=== PATIENT | female | born 1955 | race Caucasian/White ===

== ENCOUNTER 2021-01-25 07:45 | Inpatient (IN) | payer OTHER, MEDICAID ==
[~2021-01-25] VITALS: Ht 157.5 cm; Wt 106.4 kg
[2021-01-25 09:08] LABS: Hemoglobin 12.6 g/dL (12.2-16.2)
[2021-01-25 09:09] LABS: Mean Corpuscular Hemoglobin 31.9 pg (28.0-32.0); Red Blood Cells 3.94 10^6/uL (4.0-5.20); Red Cell Distribution Width 13.4 % (11.8-14.3)
[2021-01-25 09:15] LABS: White Blood Cell 1.6 10^3/uL (4.4-10.8)
[2021-01-25 09:16] LABS: Basophils % (manual) 0 (0.0-2.0); Blast Cells 0; Eosinophils % (manual) 0 (0-7); Metamyelocytes % 0; Myelocytes % 0; Promyelocytes % 0; Reactive Lymphocytes 0
[2021-01-25 09:23] LABS: Albumin 2.8 g/dL (3.4-5.0); Calcium 8.9 mg/dL (8.5-10.1); Magnesium 2.1 mg/dL (1.6-2.6); Potassium 3.2 mmol/L (3.5-5.1)
[2021-01-25 09:40] LABS: BUN/Creatinine Ratio 12.4; Bilirubin, Total 0.6 mg/dL (0.2-1.0); Total Protein 6.6 g/dL (6.4-8.2)
[2021-01-25 10:07] LABS: Band Neutrophils % (manual) 9; Lymphocytes % (manual) 26 (10.0-50.0); Monocytes % (manual) 4 (0-12)
[2021-01-25] MEDS ORDERED: DexAMETHasone SOD PHOS 10MG/1ML VIAL INJ IV ONE (10:15)
[2021-01-25] MEDS ORDERED: cefTRIAXone 1GM/50ML D5W 50 ML IV ONE (10:15)
[2021-01-25] MEDS ORDERED: AZITHROMYCIN 500MG/ 250ML 250 ML IV ONE (10:15)
[2021-01-25 12:38] LABS: Urine Bacteria NONE SEEN /hpf (None Seen); Urine Blood 1+ /uL (Negative); Urine WBC 6 /hpf (0 - 5)
[2021-01-25] MEDS ORDERED: NITROGLYCERIN 0.4 MG SL TAB SL PRN (18:00)
[2021-01-25] MEDS ORDERED: MORPHINE SULFATE INJECTION 2 MG/ML SYRG IV PRN ×2 (18:00→18:15)
[2021-01-25] MEDS ORDERED: REMDESIVIR PER PHARMACY 0 ML IV SCH (18:00)
[2021-01-25] MEDS ORDERED: ACETAMINOPHEN 500 MG TAB PO PRN (18:00)
[2021-01-25] MEDS ORDERED: DEXTROSE (50%) 50ML SYRG IV PRN (18:00)
[2021-01-25] MEDS ORDERED: SOD CHL 0.9%/ KCL 40MEQ 1,000 ML IV ONE (18:00)
[2021-01-25] MEDS ORDERED: hydrALAZINE HCL 20 MG/ML VL IV PRN (18:15)
[2021-01-25] MEDS ORDERED: DOCUSATE CALCIUM 240 MG CAP PO PRN (18:15)
[2021-01-25] MEDS ORDERED: ONDANSETRON HCL 4 MG/2 ML VIAL IV PRN (18:15)
[2021-01-25] MEDS: BUDESONIDE (INHALATION) 180 MCG IH IN SCH (19:03)
[2021-01-25] MEDS: ALBUTEROL SULF HFA 90MCG INH 200DOSE IN PRN (19:55)
[2021-01-25] MEDS ORDERED: REMDESIVIR 200 MG in NS 210ml LOADING DOSE ADULT IV ONE (20:00)
[2021-01-25] MEDS: ACCU-CHEK COMFORT CURVE STRIP VI SCH ×2 (20:12→23:32)
[2021-01-25] MEDS: InsuLIN REG 1unit/0.01ml Soln (100units/ml) SC SCH ×2 (20:16→23:46)
[2021-01-25 21:00] VITALS: BP 146/67
[2021-01-25 22:00] VITALS: BP 146/67
[2021-01-25] MEDS: ENOXAPARIN SOD 40 MG/0.4 ML SYRINGE SC SCH (22:22)
[2021-01-25] MEDS: INSULIN LANTUS (GLARGINE) 1 /0.01ml (100units/ml) SC SCH (22:24)
[2021-01-26] VITALS (7 sets, daily range): BP systolic 102–159; BP diastolic 57–69
[2021-01-26] MEDS ORDERED: METF-370 PO (02:40)
[2021-01-26] MEDS ORDERED: GLIP-110 PO (02:40)
[2021-01-26] MEDS: ACCU-CHEK COMFORT CURVE STRIP VI SCH ×5 (03:42→20:35)
[2021-01-26] MEDS: InsuLIN REG 1unit/0.01ml Soln (100units/ml) SC SCH ×5 (03:44→20:40)
[2021-01-26 06:08] LABS: Hematocrit 36.3 % (36.0-46.0); Hemoglobin 12.5 g/dL (12.2-16.2); Mean Corpuscular Hemoglobin 32.3 pg (28.0-32.0); Mean Corpuscular Hgb Conc. 34.5 g/dL (32.0-36.0); Mean Corpuscular Volume 93.6 fL (80.0-100.0); Red Blood Cells 3.87 10^6/uL (4.0-5.20); Red Cell Distribution Width 13.7 % (11.8-14.3)
[2021-01-26 06:29] LABS: Potassium 3.6 mmol/L (3.5-5.1)
[2021-01-26 06:40] LABS: Albumin 2.6 g/dL (3.4-5.0); BUN/Creatinine Ratio 17.1; Bilirubin, Total 0.4 mg/dL (0.2-1.0); Calcium 8.6 mg/dL (8.5-10.1)
[2021-01-26] MEDS: BUDESONIDE (INHALATION) 180 MCG IH IN SCH ×2 (06:47→22:00)
[2021-01-26] MEDS: ALBUTEROL SULF HFA 90MCG INH 200DOSE IN PRN ×2 (06:47→23:22)
[2021-01-26 06:48] LABS: White Blood Cell 1.8 10^3/uL (4.4-10.8)
[2021-01-26 06:49] LABS: Basophils % (manual) 0 (0.0-2.0); Blast Cells 0; Eosinophils % (manual) 0 (0-7); Metamyelocytes % 0; Myelocytes % 0; Promyelocytes % 0; Reactive Lymphocytes 0
[2021-01-26] MEDS: cefTRIAXone 1GM/50ML D5W 50 ML IV SCH (09:43)
[2021-01-26] MEDS: DexAMETHasone SOD PHOS 10MG/1ML VIAL INJ IV SCH (09:45)
[2021-01-26] MEDS: PANTOPRAZOLE 40 MG TAB PO SCH (09:46)
[2021-01-26] MEDS: ASCORBIC ACID 1,000 MG TAB PO SCH (09:46)
[2021-01-26] MEDS: ZINC SULFATE 220mg CAP or TAB PO SCH (09:46)
[2021-01-26] MEDS: CHOLECALCIFEROL (VITD3) 2,000 UNIT CAP/TAB PO SCH (09:47)
[2021-01-26] MEDS: ENOXAPARIN SOD 40 MG/0.4 ML SYRINGE SC SCH ×2 (09:49→22:01)
[2021-01-26 11:26] LABS: Band Neutrophils % (manual) 3; Lymphocytes % (manual) 18 (10.0-50.0); Monocytes % (manual) 16 (0-12)
[2021-01-26] MEDS: AZITHROMYCIN 500MG/ 250ML 250 ML IV SCH (11:30)
[2021-01-26] MEDS: REMDESIVIR 100mg 100 MG in SODIUM CHL 0.9% 230 ML IV SCH (15:00)
[2021-01-26] MEDS: INSULIN LANTUS (GLARGINE) 1 /0.01ml (100units/ml) SC SCH (22:02)
[2021-01-27] MEDS: InsuLIN REG 1unit/0.01ml Soln (100units/ml) SC SCH ×6 (00:02→20:00)
[2021-01-27] MEDS: ACCU-CHEK COMFORT CURVE STRIP VI SCH ×6 (04:15→20:00)
[2021-01-27 05:00] VITALS: BP 129/94
[2021-01-27] MEDS: ALBUTEROL SULF HFA 90MCG INH 200DOSE IN PRN ×2 (06:06→21:27)
[2021-01-27] MEDS: BUDESONIDE (INHALATION) 180 MCG IH IN SCH ×2 (06:06→21:23)
[2021-01-27 09:00] VITALS: BP 149/63
[2021-01-27] MEDS: DexAMETHasone SOD PHOS 10MG/1ML VIAL INJ IV SCH (09:50)
[2021-01-27] MEDS: cefTRIAXone 1GM/50ML D5W 50 ML IV SCH (09:50)
[2021-01-27] MEDS: PANTOPRAZOLE 40 MG TAB PO SCH (09:51)
[2021-01-27] MEDS: ZINC SULFATE 220mg CAP or TAB PO SCH (09:51)
[2021-01-27] MEDS: ASCORBIC ACID 1,000 MG TAB PO SCH (09:51)
[2021-01-27] MEDS: ENOXAPARIN SOD 40 MG/0.4 ML SYRINGE SC SCH ×2 (09:52→21:46)
[2021-01-27] MEDS: CHOLECALCIFEROL (VITD3) 2,000 UNIT CAP/TAB PO SCH (09:52)
[2021-01-27] MEDS ORDERED: glipiZIDE 5 MG TAB PO SCH (10:00)
[2021-01-27] MEDS ORDERED: glipiZIDE 5 MG TAB PO ONE (11:30)
[2021-01-27] MEDS: AZITHROMYCIN 500MG/ 250ML 250 ML IV SCH (12:01)
[2021-01-27 12:13] LABS: Basophils # (auto) 0 10 ^3/uL (0-0.2); Basophils % (auto) 0.3 % (0.0-2.0); Eosinophils # (auto) 0 10 ^3/uL (0-0.8); Eosinophils % (auto) 0.1 % (0.0-7.0); Hematocrit 37.1 % (36.0-46.0); Hemoglobin 12.5 g/dL (12.2-16.2); Lymphocytes # (auto) 0.3 10 ^3/uL (0.4-5.4); Lymphocytes % (auto) 6.7 % (10.0-50.0); Mean Corpuscular Hemoglobin 32.4 pg (28.0-32.0); Mean Corpuscular Hgb Conc. 33.8 g/dL (32.0-36.0); Mean Corpuscular Volume 95.8 fL (80.0-100.0); Monocytes # (auto) 0.4 10 ^3/uL (0-1.3); Monocytes % (auto) 10.2 % (0.0-12.0); Neutrophils # (auto) 3.4 10 ^3/uL (1.6-8.6); Neutrophils % (auto) 82.7 % (37.0-80.0); Nucleated Red Blood Cells % 0.1 %; Red Blood Cells 3.87 10^6/uL (4.0-5.20); Red Cell Distribution Width 13.8 % (11.8-14.3); White Blood Cell 4.1 10^3/uL (4.4-10.8)
[2021-01-27 13:00] VITALS: BP_SYST 114; BP_SYST 149; BP_DIAS 63; BP_DIAS 71
[2021-01-27] MEDS: REMDESIVIR 100mg 100 MG in SODIUM CHL 0.9% 230 ML IV SCH (15:55)
[2021-01-27 17:00] VITALS: BP 133/62
[2021-01-27] MEDS: INSULIN LANTUS (GLARGINE) 1 /0.01ml (100units/ml) SC SCH (21:43)
[2021-01-27 22:35] VITALS: BP 148/69
[2021-01-28] MEDS: ACCU-CHEK COMFORT CURVE STRIP VI SCH ×6 (00:09→20:20)
[2021-01-28] MEDS: InsuLIN REG 1unit/0.01ml Soln (100units/ml) SC SCH ×6 (00:09→20:19)
[2021-01-28 05:14] VITALS: BP 152/70
[2021-01-28 05:53] LABS: Basophils # (auto) 0 10 ^3/uL (0-0.2); Basophils % (auto) 0.2 % (0.0-2.0); Eosinophils # (auto) 0 10 ^3/uL (0-0.8); Hematocrit 40.3 % (36.0-46.0); Hemoglobin 13.6 g/dL (12.2-16.2); Lymphocytes # (auto) 0.4 10 ^3/uL (0.4-5.4); Lymphocytes % (auto) 9.5 % (10.0-50.0); Mean Corpuscular Hemoglobin 32.1 pg (28.0-32.0); Mean Corpuscular Hgb Conc. 33.8 g/dL (32.0-36.0); Monocytes # (auto) 0.4 10 ^3/uL (0-1.3); Monocytes % (auto) 10.8 % (0.0-12.0); Neutrophils # (auto) 3.1 10 ^3/uL (1.6-8.6); Neutrophils % (auto) 79.5 % (37.0-80.0); Nucleated Red Blood Cells % 0.1 %; Red Blood Cells 4.24 10^6/uL (4.0-5.20); Red Cell Distribution Width 13.9 % (11.8-14.3); White Blood Cell 3.9 10^3/uL (4.4-10.8)
[2021-01-28 06:05] LABS: Potassium 3.7 mmol/L (3.5-5.1)
[2021-01-28] MEDS: glipiZIDE 5 MG TAB PO SCH (06:31)
[2021-01-28 06:37] LABS: Albumin 2.6 g/dL (3.4-5.0); BUN/Creatinine Ratio 26.7; Bilirubin, Total 0.5 mg/dL (0.2-1.0); Calcium 9.5 mg/dL (8.5-10.1); Magnesium 2.7 mg/dL (1.6-2.6); Total Protein 6.1 g/dL (6.4-8.2)
[2021-01-28] MEDS: ALBUTEROL SULF HFA 90MCG INH 200DOSE IN PRN ×2 (07:13→21:29)
[2021-01-28] MEDS: BUDESONIDE (INHALATION) 180 MCG IH IN SCH ×2 (07:13→21:28)
[2021-01-28] MEDS: cefTRIAXone 1GM/50ML D5W 50 ML IV SCH (08:41)
[2021-01-28] MEDS: DexAMETHasone SOD PHOS 10MG/1ML VIAL INJ IV SCH (08:41)
[2021-01-28] MEDS: PANTOPRAZOLE 40 MG TAB PO SCH (08:42)
[2021-01-28] MEDS: AZITHROMYCIN 500MG/ 250ML 250 ML IV SCH (08:42)
[2021-01-28] MEDS: ZINC SULFATE 220mg CAP or TAB PO SCH (08:42)
[2021-01-28] MEDS: ASCORBIC ACID 1,000 MG TAB PO SCH (08:42)
[2021-01-28] MEDS: CHOLECALCIFEROL (VITD3) 2,000 UNIT CAP/TAB PO SCH (08:42)
[2021-01-28] MEDS: ENOXAPARIN SOD 40 MG/0.4 ML SYRINGE SC SCH ×2 (08:43→22:26)
[2021-01-28 08:46] VITALS: BP 147/75
[2021-01-28 13:00] VITALS: BP 147/76
[2021-01-28] MEDS: REMDESIVIR 100mg 100 MG in SODIUM CHL 0.9% 230 ML IV SCH (15:10)
[2021-01-28 17:00] VITALS: BP 137/72
[2021-01-28] MEDS: INSULIN LANTUS (GLARGINE) 1 /0.01ml (100units/ml) SC SCH (22:27)
[2021-01-28 22:31] VITALS: BP 141/64
[2021-01-29] MEDS: ACCU-CHEK COMFORT CURVE STRIP VI SCH ×6 (04:00→20:38)
[2021-01-29] MEDS: InsuLIN REG 1unit/0.01ml Soln (100units/ml) SC SCH ×6 (04:31→20:44)
[2021-01-29 05:07] VITALS: BP 165/85
[2021-01-29 06:03] LABS: Potassium 3.5 mmol/L (3.5-5.1)
[2021-01-29 06:08] LABS: Albumin 2.3 g/dL (3.4-5.0); BUN/Creatinine Ratio 27.4; Bilirubin, Total 0.6 mg/dL (0.2-1.0); Calcium 9.2 mg/dL (8.5-10.1); Total Protein 5.5 g/dL (6.4-8.2)
[2021-01-29] MEDS: glipiZIDE 5 MG TAB PO SCH (06:17)
[2021-01-29] MEDS: BUDESONIDE (INHALATION) 180 MCG IH IN SCH ×2 (07:23→23:08)
[2021-01-29] MEDS: ALBUTEROL SULF HFA 90MCG INH 200DOSE IN PRN ×2 (07:23→23:08)
[2021-01-29] MEDS: cefTRIAXone 1GM/50ML D5W 50 ML IV SCH (08:20)
[2021-01-29] MEDS: AZITHROMYCIN 500MG/ 250ML 250 ML IV SCH (08:21)
[2021-01-29] MEDS: DexAMETHasone SOD PHOS 10MG/1ML VIAL INJ IV SCH (08:21)
[2021-01-29] MEDS: PANTOPRAZOLE 40 MG TAB PO SCH (08:22)
[2021-01-29] MEDS: ZINC SULFATE 220mg CAP or TAB PO SCH (08:22)
[2021-01-29] MEDS: ASCORBIC ACID 1,000 MG TAB PO SCH (08:23)
[2021-01-29] MEDS: CHOLECALCIFEROL (VITD3) 2,000 UNIT CAP/TAB PO SCH (08:23)
[2021-01-29] MEDS: ENOXAPARIN SOD 40 MG/0.4 ML SYRINGE SC SCH ×2 (08:24→22:10)
[2021-01-29 09:00] VITALS: BP 123/63
[2021-01-29 13:00] VITALS: BP 149/71
[2021-01-29] MEDS: REMDESIVIR 100mg 100 MG in SODIUM CHL 0.9% 230 ML IV SCH (14:59)
[2021-01-29 17:00] VITALS: BP 148/72
[2021-01-29 22:00] VITALS: BP 157/68
[2021-01-29] MEDS: INSULIN LANTUS (GLARGINE) 1 /0.01ml (100units/ml) SC SCH (22:06)
[2021-01-30] MEDS: ACCU-CHEK COMFORT CURVE STRIP VI SCH ×6 (00:28→20:05)
[2021-01-30] MEDS: InsuLIN REG 1unit/0.01ml Soln (100units/ml) SC SCH ×6 (00:30→20:10)
[2021-01-30 05:00] VITALS: BP 133/71
[2021-01-30 06:31] LABS: Albumin 2.3 g/dL (3.4-5.0); Calcium 9.3 mg/dL (8.5-10.1); Potassium 3.4 mmol/L (3.5-5.1)
[2021-01-30 06:36] LABS: BUN/Creatinine Ratio 28.4; Bilirubin, Total 0.6 mg/dL (0.2-1.0); Total Protein 5.6 g/dL (6.4-8.2)
[2021-01-30] MEDS: glipiZIDE 5 MG TAB PO SCH (06:40)
[2021-01-30] MEDS: cefTRIAXone 1GM/50ML D5W 50 ML IV SCH (07:55)
[2021-01-30] MEDS: AZITHROMYCIN 500MG/ 250ML 250 ML IV SCH (07:56)
[2021-01-30] MEDS: DexAMETHasone SOD PHOS 10MG/1ML VIAL INJ IV SCH (07:56)
[2021-01-30] MEDS: PANTOPRAZOLE 40 MG TAB PO SCH (07:57)
[2021-01-30] MEDS: ASCORBIC ACID 1,000 MG TAB PO SCH (07:57)
[2021-01-30] MEDS: CHOLECALCIFEROL (VITD3) 2,000 UNIT CAP/TAB PO SCH (07:57)
[2021-01-30] MEDS: ZINC SULFATE 220mg CAP or TAB PO SCH (07:57)
[2021-01-30] MEDS: ENOXAPARIN SOD 40 MG/0.4 ML SYRINGE SC SCH ×2 (07:58→21:38)
[2021-01-30] MEDS: ALBUTEROL SULF HFA 90MCG INH 200DOSE IN PRN ×2 (08:31→22:07)
[2021-01-30] MEDS: BUDESONIDE (INHALATION) 180 MCG IH IN SCH ×2 (08:31→22:06)
[2021-01-30 09:00] VITALS: BP 137/63
[2021-01-30 13:00] VITALS: BP 143/68
[2021-01-30 16:56] VITALS: BP 141/61
[2021-01-30 21:30] VITALS: BP 134/76
[2021-01-30] MEDS: INSULIN LANTUS (GLARGINE) 1 /0.01ml (100units/ml) SC SCH (21:44)
[2021-01-31] MEDS: ACCU-CHEK COMFORT CURVE STRIP VI SCH ×6 (00:20→22:18)
[2021-01-31] MEDS: InsuLIN REG 1unit/0.01ml Soln (100units/ml) SC SCH ×6 (00:21→22:24)
[2021-01-31 05:00] VITALS: BP 159/78
[2021-01-31] MEDS: BUDESONIDE (INHALATION) 180 MCG IH IN SCH ×2 (06:33→22:00)
[2021-01-31] MEDS: ALBUTEROL SULF HFA 90MCG INH 200DOSE IN PRN ×2 (06:33→23:36)
[2021-01-31] MEDS: glipiZIDE 5 MG TAB PO SCH (06:49)
[2021-01-31 09:00] VITALS: BP 156/65
[2021-01-31] MEDS: ZINC SULFATE 220mg CAP or TAB PO SCH (09:10)
[2021-01-31] MEDS: PANTOPRAZOLE 40 MG TAB PO SCH (09:10)
[2021-01-31] MEDS: ENOXAPARIN SOD 40 MG/0.4 ML SYRINGE SC SCH ×2 (09:10→22:25)
[2021-01-31] MEDS: ASCORBIC ACID 1,000 MG TAB PO SCH (09:10)
[2021-01-31] MEDS: DexAMETHasone SOD PHOS 10MG/1ML VIAL INJ IV SCH (09:10)
[2021-01-31] MEDS: CHOLECALCIFEROL (VITD3) 2,000 UNIT CAP/TAB PO SCH (09:11)
[2021-01-31 12:00] LABS: Basophils # (auto) 0 10 ^3/uL (0-0.2); Basophils % (auto) 0.1 % (0.0-2.0); Eosinophils # (auto) 0 10 ^3/uL (0-0.8); Hematocrit 40.7 % (36.0-46.0); Hemoglobin 14.4 g/dL (12.2-16.2); Lymphocytes # (auto) 0.7 10 ^3/uL (0.4-5.4); Lymphocytes % (auto) 8.3 % (10.0-50.0); Mean Corpuscular Hemoglobin 32.7 pg (28.0-32.0); Mean Corpuscular Hgb Conc. 35.3 g/dL (32.0-36.0); Mean Corpuscular Volume 92.6 fL (80.0-100.0); Monocytes # (auto) 0.6 10 ^3/uL (0-1.3); Monocytes % (auto) 6.4 % (0.0-12.0); Neutrophils # (auto) 7.7 10 ^3/uL (1.6-8.6); Neutrophils % (auto) 85.2 % (37.0-80.0); Nucleated Red Blood Cells % 0.1 %; Red Blood Cells 4.39 10^6/uL (4.0-5.20); Red Cell Distribution Width 13.3 % (11.8-14.3)
[2021-01-31 12:28] LABS: Potassium 3.6 mmol/L (3.5-5.1)
[2021-01-31 12:44] LABS: Albumin 2.3 g/dL (3.4-5.0); BUN/Creatinine Ratio 29.5; Bilirubin, Total 0.8 mg/dL (0.2-1.0); Calcium 9.3 mg/dL (8.5-10.1); Total Protein 5.7 g/dL (6.4-8.2)
[2021-01-31 13:00] VITALS: BP 113/62
[2021-01-31 17:00] VITALS: BP 102/64
[2021-01-31] MEDS ORDERED: LORazepam 2MG/ML-1ML VIAL IV ONE (18:30)
[2021-01-31 22:00] VITALS: BP 127/77
[2021-01-31] MEDS: INSULIN LANTUS (GLARGINE) 1 /0.01ml (100units/ml) SC SCH (22:24)
[2021-02-01] MEDS: ACCU-CHEK COMFORT CURVE STRIP VI SCH ×7 (02:31→23:49)
[2021-02-01] MEDS: InsuLIN REG 1unit/0.01ml Soln (100units/ml) SC SCH ×7 (02:45→23:49)
[2021-02-01 05:00] VITALS: BP_SYST 127; BP_SYST 145; BP_DIAS 77; BP_DIAS 78
[2021-02-01 06:49] LABS: Basophils # (auto) 0 10 ^3/uL (0-0.2); Basophils % (auto) 0.2 % (0.0-2.0); Eosinophils # (auto) 0 10 ^3/uL (0-0.8); Hematocrit 38.6 % (36.0-46.0); Hemoglobin 13.5 g/dL (12.2-16.2); Lymphocytes # (auto) 0.4 10 ^3/uL (0.4-5.4); Lymphocytes % (auto) 6.6 % (10.0-50.0); Mean Corpuscular Hemoglobin 32.6 pg (28.0-32.0); Mean Corpuscular Hgb Conc. 34.9 g/dL (32.0-36.0); Mean Corpuscular Volume 93.3 fL (80.0-100.0); Monocytes # (auto) 0.3 10 ^3/uL (0-1.3); Monocytes % (auto) 5.9 % (0.0-12.0); Neutrophils # (auto) 4.9 10 ^3/uL (1.6-8.6); Neutrophils % (auto) 87.3 % (37.0-80.0); Nucleated Red Blood Cells % 0.1 %; Red Blood Cells 4.14 10^6/uL (4.0-5.20); Red Cell Distribution Width 13.6 % (11.8-14.3); White Blood Cell 5.6 10^3/uL (4.4-10.8)
[2021-02-01] MEDS: glipiZIDE 5 MG TAB PO SCH (06:51)
[2021-02-01 07:02] LABS: BUN/Creatinine Ratio 37.7; CRP High Sensitivity 5.21 mg/dL (< 0.3); Magnesium 2.9 mg/dL (1.6-2.6)
[2021-02-01 09:00] VITALS: BP 150/76
[2021-02-01] MEDS: ASCORBIC ACID 1,000 MG TAB PO SCH (10:08)
[2021-02-01] MEDS: DexAMETHasone SOD PHOS 10MG/1ML VIAL INJ IV SCH (10:08)
[2021-02-01] MEDS: ZINC SULFATE 220mg CAP or TAB PO SCH (10:08)
[2021-02-01] MEDS: CHOLECALCIFEROL (VITD3) 2,000 UNIT CAP/TAB PO SCH (10:09)
[2021-02-01] MEDS: ENOXAPARIN SOD 40 MG/0.4 ML SYRINGE SC SCH ×2 (10:09→21:49)
[2021-02-01] MEDS: PANTOPRAZOLE 40 MG TAB PO SCH (10:09)
[2021-02-01 17:00] VITALS: BP 125/62
[2021-02-01 21:38] VITALS: BP_SYST 120; BP_SYST 150; BP_DIAS 66; BP_DIAS 70
[2021-02-01] MEDS: INSULIN LANTUS (GLARGINE) 1 /0.01ml (100units/ml) SC SCH (21:50)
[2021-02-01] MEDS: BUDESONIDE (INHALATION) 180 MCG IH IN SCH (22:00)
[2021-02-01] MEDS: ALBUTEROL SULF HFA 90MCG INH 200DOSE IN PRN (23:20)
[2021-02-02] MEDS: ACCU-CHEK COMFORT CURVE STRIP VI SCH ×6 (04:01→23:31)
[2021-02-02] MEDS: InsuLIN REG 1unit/0.01ml Soln (100units/ml) SC SCH ×6 (04:02→23:34)
[2021-02-02 05:00] VITALS: BP 147/52
[2021-02-02] MEDS: BUDESONIDE (INHALATION) 180 MCG IH IN SCH ×2 (06:34→22:00)
[2021-02-02] MEDS: ALBUTEROL SULF HFA 90MCG INH 200DOSE IN PRN (06:34)
[2021-02-02] MEDS: glipiZIDE 5 MG TAB PO SCH (06:57)
[2021-02-02] MEDS: DexAMETHasone SOD PHOS 10MG/1ML VIAL INJ IV SCH (08:56)
[2021-02-02] MEDS: ENOXAPARIN SOD 40 MG/0.4 ML SYRINGE SC SCH ×2 (08:56→20:42)
[2021-02-02] MEDS: CHOLECALCIFEROL (VITD3) 2,000 UNIT CAP/TAB PO SCH (08:57)
[2021-02-02] MEDS: ZINC SULFATE 220mg CAP or TAB PO SCH (08:57)
[2021-02-02] MEDS: ASCORBIC ACID 1,000 MG TAB PO SCH (08:57)
[2021-02-02] MEDS: PANTOPRAZOLE 40 MG TAB PO SCH (08:57)
[2021-02-02 09:00] VITALS: BP 139/50
[2021-02-02 12:49] VITALS: BP 152/67
[2021-02-02] MEDS: INSULIN LANTUS (GLARGINE) 1 /0.01ml (100units/ml) SC SCH (20:41)
[2021-02-02 22:00] VITALS: BP 138/65
[2021-02-03] MEDS: ACCU-CHEK COMFORT CURVE STRIP VI SCH ×6 (03:56→23:45)
[2021-02-03] MEDS: InsuLIN REG 1unit/0.01ml Soln (100units/ml) SC SCH ×6 (03:57→23:46)
[2021-02-03 05:00] VITALS: BP 130/61
[2021-02-03] MEDS: BUDESONIDE (INHALATION) 180 MCG IH IN SCH ×2 (05:54→18:48)
[2021-02-03] MEDS: ALBUTEROL SULF HFA 90MCG INH 200DOSE IN PRN ×2 (05:54→18:48)
[2021-02-03] MEDS: glipiZIDE 5 MG TAB PO SCH (06:08)
[2021-02-03 08:00] VITALS: BP 136/87
[2021-02-03 09:00] VITALS: BP 116/62
[2021-02-03] MEDS: CHOLECALCIFEROL (VITD3) 2,000 UNIT CAP/TAB PO SCH (10:20)
[2021-02-03] MEDS: ENOXAPARIN SOD 40 MG/0.4 ML SYRINGE SC SCH ×2 (10:21→20:32)
[2021-02-03] MEDS: ZINC SULFATE 220mg CAP or TAB PO SCH (10:28)
[2021-02-03] MEDS: ASCORBIC ACID 1,000 MG TAB PO SCH (10:28)
[2021-02-03] MEDS: PANTOPRAZOLE 40 MG TAB PO SCH (10:28)
[2021-02-03] MEDS: DexAMETHasone SOD PHOS 10MG/1ML VIAL INJ IV SCH (10:29)
[2021-02-03 13:00] VITALS: BP 137/69
[2021-02-03 17:00] VITALS: BP 148/74
[2021-02-03] MEDS: INSULIN LANTUS (GLARGINE) 1 /0.01ml (100units/ml) SC SCH (20:33)
[2021-02-03 21:46] VITALS: BP 141/64
[2021-02-04] VITALS (7 sets, daily range): BP systolic 121–146; BP diastolic 43–71
[2021-02-04] MEDS: ACCU-CHEK COMFORT CURVE STRIP VI SCH ×6 (03:10→23:39)
[2021-02-04] MEDS: InsuLIN REG 1unit/0.01ml Soln (100units/ml) SC SCH ×6 (03:13→23:41)
[2021-02-04] MEDS: glipiZIDE 5 MG TAB PO SCH (05:39)
[2021-02-04] MEDS: ALBUTEROL SULF HFA 90MCG INH 200DOSE IN PRN (06:09)
[2021-02-04] MEDS: BUDESONIDE (INHALATION) 180 MCG IH IN SCH ×2 (06:09→22:00)
[2021-02-04] MEDS: DexAMETHasone SOD PHOS 10MG/1ML VIAL INJ IV SCH (09:30)
[2021-02-04] MEDS: ZINC SULFATE 220mg CAP or TAB PO SCH (09:31)
[2021-02-04] MEDS: PANTOPRAZOLE 40 MG TAB PO SCH (09:31)
[2021-02-04] MEDS: CHOLECALCIFEROL (VITD3) 2,000 UNIT CAP/TAB PO SCH (09:32)
[2021-02-04] MEDS: ENOXAPARIN SOD 40 MG/0.4 ML SYRINGE SC SCH ×2 (09:32→20:27)
[2021-02-04] MEDS: ASCORBIC ACID 1,000 MG TAB PO SCH (09:32)
[2021-02-04] MEDS: INSULIN LANTUS (GLARGINE) 1 /0.01ml (100units/ml) SC SCH (20:27)
[2021-02-05] VITALS (10 sets, daily range): BP systolic 102–134; BP diastolic 41–74
[2021-02-05] MEDS: ACCU-CHEK COMFORT CURVE STRIP VI SCH ×5 (04:07→21:38)
[2021-02-05] MEDS: InsuLIN REG 1unit/0.01ml Soln (100units/ml) SC SCH ×5 (04:12→21:48)
[2021-02-05 05:57] LABS: Basophils # (auto) 0 10 ^3/uL (0-0.2); Basophils % (auto) 0.6 % (0.0-2.0); Eosinophils # (auto) 0 10 ^3/uL (0-0.8); Eosinophils % (auto) 0.5 % (0.0-7.0); Hematocrit 38.4 % (36.0-46.0); Hemoglobin 13.4 g/dL (12.2-16.2); Lymphocytes # (auto) 0.7 10 ^3/uL (0.4-5.4); Lymphocytes % (auto) 11.6 % (10.0-50.0); Mean Corpuscular Hemoglobin 32.7 pg (28.0-32.0); Mean Corpuscular Hgb Conc. 34.8 g/dL (32.0-36.0); Mean Corpuscular Volume 94.1 fL (80.0-100.0); Monocytes # (auto) 0.5 10 ^3/uL (0-1.3); Monocytes % (auto) 9.1 % (0.0-12.0); Neutrophils # (auto) 4.6 10 ^3/uL (1.6-8.6); Neutrophils % (auto) 78.2 % (37.0-80.0); Red Blood Cells 4.08 10^6/uL (4.0-5.20); Red Cell Distribution Width 13.4 % (11.8-14.3); White Blood Cell 5.8 10^3/uL (4.4-10.8)
[2021-02-05 06:17] LABS: Albumin 2.1 g/dL (3.4-5.0); Calcium 9.4 mg/dL (8.5-10.1); Potassium 4.2 mmol/L (3.5-5.1)
[2021-02-05 06:20] LABS: BUN/Creatinine Ratio 39.7
[2021-02-05 06:21] LABS: Bilirubin, Total 0.7 mg/dL (0.2-1.0); CRP High Sensitivity 0.75 mg/dL (< 0.3); Total Protein 5.3 g/dL (6.4-8.2)
[2021-02-05] MEDS: glipiZIDE 5 MG TAB PO SCH (06:22)
[2021-02-05] MEDS: ALBUTEROL SULF HFA 90MCG INH 200DOSE IN PRN ×3 (06:24→21:30)
[2021-02-05] MEDS: DexAMETHasone SOD PHOS 10MG/1ML VIAL INJ IV SCH (10:24)
[2021-02-05] MEDS: ZINC SULFATE 220mg CAP or TAB PO SCH (10:26)
[2021-02-05] MEDS: PANTOPRAZOLE 40 MG TAB PO SCH (10:26)
[2021-02-05] MEDS: CHOLECALCIFEROL (VITD3) 2,000 UNIT CAP/TAB PO SCH (10:26)
[2021-02-05] MEDS: ASCORBIC ACID 1,000 MG TAB PO SCH (10:26)
[2021-02-05] MEDS: ENOXAPARIN SOD 40 MG/0.4 ML SYRINGE SC SCH ×2 (10:27→21:38)
[2021-02-05] MEDS: BUDESONIDE (INHALATION) 180 MCG IH IN SCH (21:30)
[2021-02-05] MEDS: INSULIN LANTUS (GLARGINE) 1 /0.01ml (100units/ml) SC SCH (21:39)
[2021-02-06 05:24] VITALS: BP 109/60
[2021-02-06] MEDS: BUDESONIDE (INHALATION) 180 MCG IH IN SCH ×2 (06:10→22:20)
[2021-02-06] MEDS: ALBUTEROL SULF HFA 90MCG INH 200DOSE IN PRN ×2 (06:11→22:48)
[2021-02-06] MEDS: glipiZIDE 5 MG TAB PO SCH (07:52)
[2021-02-06] MEDS: InsuLIN REG 1unit/0.01ml Soln (100units/ml) SC SCH ×4 (07:53→20:51)
[2021-02-06] MEDS: ACCU-CHEK COMFORT CURVE STRIP VI SCH ×4 (07:53→21:30)
[2021-02-06 09:00] VITALS: BP 120/51
[2021-02-06] MEDS: DexAMETHasone SOD PHOS 10MG/1ML VIAL INJ IV SCH (11:01)
[2021-02-06] MEDS: PANTOPRAZOLE 40 MG TAB PO SCH (11:01)
[2021-02-06] MEDS: ZINC SULFATE 220mg CAP or TAB PO SCH (11:01)
[2021-02-06] MEDS: CHOLECALCIFEROL (VITD3) 2,000 UNIT CAP/TAB PO SCH (11:01)
[2021-02-06] MEDS: ASCORBIC ACID 1,000 MG TAB PO SCH (11:02)
[2021-02-06 13:00] VITALS: BP 110/59
[2021-02-06 17:00] VITALS: BP 145/62
[2021-02-06 19:38] LABS: Anion Gap 9 (5-15); BUN/Creatinine Ratio 29.7; Blood Urea Nitrogen 22 mg/dL (7-18); Calcium 9.4 mg/dL (8.5-10.1); Carbon Dioxide 26 mmol/L (21-32); Chloride 99 mmol/L (98-107); GFR African American 102 mL/min; GFR Non-African American 84 mL/min; Glucose 302 mg/dL (74-106); Potassium 5.4 mmol/L (3.5-5.1); Sodium 134 mmol/L (136-145)
[2021-02-06 22:43] VITALS: BP 121/58
[2021-02-07 05:14] VITALS: BP 130/53
[2021-02-07 05:36] LABS: Basophils # (auto) 0 10 ^3/uL (0-0.2); Basophils % (auto) 0.1 % (0.0-2.0); Eosinophils # (auto) 0 10 ^3/uL (0-0.8); Eosinophils % (auto) 0.3 % (0.0-7.0); Hematocrit 39.6 % (36.0-46.0); Hemoglobin 13.3 g/dL (12.2-16.2); Lymphocytes % (auto) 13.4 % (10.0-50.0); Mean Corpuscular Hemoglobin 31.8 pg (28.0-32.0); Mean Corpuscular Hgb Conc. 33.6 g/dL (32.0-36.0); Mean Corpuscular Volume 94.7 fL (80.0-100.0); Monocytes # (auto) 0.8 10 ^3/uL (0-1.3); Monocytes % (auto) 10.1 % (0.0-12.0); Neutrophils % (auto) 76.1 % (37.0-80.0); Nucleated Red Blood Cells % 0.2 %; Red Blood Cells 4.18 10^6/uL (4.0-5.20); Red Cell Distribution Width 13.5 % (11.8-14.3); White Blood Cell 7.8 10^3/uL (4.4-10.8)
[2021-02-07] MEDS: ACCU-CHEK COMFORT CURVE STRIP VI SCH ×4 (06:00→21:17)
[2021-02-07] MEDS: InsuLIN REG 1unit/0.01ml Soln (100units/ml) SC SCH ×4 (06:01→21:22)
[2021-02-07 06:05] LABS: Potassium 4.7 mmol/L (3.5-5.1)
[2021-02-07 06:09] LABS: BUN/Creatinine Ratio 34.8; Calcium 9.5 mg/dL (8.5-10.1)
[2021-02-07] MEDS: glipiZIDE 5 MG TAB PO SCH (06:14)
[2021-02-07 08:41] VITALS: BP 119/51
[2021-02-07] MEDS: BUDESONIDE (INHALATION) 180 MCG IH IN SCH ×2 (10:00→22:20)
[2021-02-07] MEDS: PANTOPRAZOLE 40 MG TAB PO SCH (10:24)
[2021-02-07] MEDS: DexAMETHasone SOD PHOS 10MG/1ML VIAL INJ IV SCH (10:24)
[2021-02-07] MEDS: ZINC SULFATE 220mg CAP or TAB PO SCH (10:24)
[2021-02-07] MEDS: CHOLECALCIFEROL (VITD3) 2,000 UNIT CAP/TAB PO SCH (10:24)
[2021-02-07] MEDS: ASCORBIC ACID 1,000 MG TAB PO SCH (10:24)
[2021-02-07] MEDS: ENOXAPARIN SOD 40 MG/0.4 ML SYRINGE SC SCH (10:24)
[2021-02-07] MEDS: INSULIN LANTUS (GLARGINE) 1 /0.01ml (100units/ml) SC SCH (12:05)
[2021-02-07 13:00] VITALS: BP 107/44
[2021-02-07] MEDS: ALBUTEROL SULF HFA 90MCG INH 200DOSE IN PRN ×2 (13:28→23:08)
[2021-02-07 17:28] VITALS: BP 127/58
[2021-02-07 22:00] VITALS: BP 119/63
[2021-02-08 05:00] VITALS: BP 135/77
[2021-02-08] MEDS: ACCU-CHEK COMFORT CURVE STRIP VI SCH ×4 (06:03→21:59)
[2021-02-08] MEDS: glipiZIDE 5 MG TAB PO SCH (06:10)
[2021-02-08] MEDS: InsuLIN REG 1unit/0.01ml Soln (100units/ml) SC SCH ×4 (06:10→22:10)
[2021-02-08] MEDS: BUDESONIDE (INHALATION) 180 MCG IH IN SCH ×2 (06:40→19:30)
[2021-02-08 08:19] LABS: Basophils # (auto) 0 10 ^3/uL (0-0.2); Basophils % (auto) 0.3 % (0.0-2.0); Eosinophils # (auto) 0 10 ^3/uL (0-0.8); Eosinophils % (auto) 0.3 % (0.0-7.0); Hematocrit 39.8 % (36.0-46.0); Hemoglobin 13.8 g/dL (12.2-16.2); Lymphocytes # (auto) 1.1 10 ^3/uL (0.4-5.4); Lymphocytes % (auto) 15.4 % (10.0-50.0); Mean Corpuscular Hemoglobin 32.6 pg (28.0-32.0); Mean Corpuscular Hgb Conc. 34.8 g/dL (32.0-36.0); Mean Corpuscular Volume 93.9 fL (80.0-100.0); Monocytes # (auto) 0.7 10 ^3/uL (0-1.3); Neutrophils # (auto) 5.2 10 ^3/uL (1.6-8.6); Red Blood Cells 4.24 10^6/uL (4.0-5.20); Red Cell Distribution Width 13.5 % (11.8-14.3)
[2021-02-08 08:27] LABS: Calcium 9.6 mg/dL (8.5-10.1); Potassium 4.7 mmol/L (3.5-5.1)
[2021-02-08] MEDS: ALBUTEROL SULF HFA 90MCG INH 200DOSE IN PRN ×2 (08:39→21:25)
[2021-02-08 09:00] VITALS: BP 115/57
[2021-02-08] MEDS: ASCORBIC ACID 1,000 MG TAB PO SCH (10:00)
[2021-02-08] MEDS: PANTOPRAZOLE 40 MG TAB PO SCH (10:00)
[2021-02-08] MEDS: DexAMETHasone SOD PHOS 10MG/1ML VIAL INJ IV SCH (10:00)
[2021-02-08] MEDS: ZINC SULFATE 220mg CAP or TAB PO SCH (10:00)
[2021-02-08] MEDS: ENOXAPARIN SOD 40 MG/0.4 ML SYRINGE SC SCH (10:01)
[2021-02-08] MEDS: CHOLECALCIFEROL (VITD3) 2,000 UNIT CAP/TAB PO SCH (10:01)
[2021-02-08] MEDS: INSULIN LANTUS (GLARGINE) 1 /0.01ml (100units/ml) SC SCH (10:20)
[2021-02-08 13:00] VITALS: BP 103/54
[2021-02-08 17:00] VITALS: BP 119/63
[2021-02-08 22:20] VITALS: BP 118/62
[2021-02-09 04:51] VITALS: BP 133/59
[2021-02-09] MEDS: ALBUTEROL SULF HFA 90MCG INH 200DOSE IN PRN (05:42)
[2021-02-09] MEDS: BUDESONIDE (INHALATION) 180 MCG IH IN SCH ×2 (05:43→19:05)
[2021-02-09] MEDS: glipiZIDE 5 MG TAB PO SCH (06:13)
[2021-02-09] MEDS: ACCU-CHEK COMFORT CURVE STRIP VI SCH ×3 (06:13→16:57)
[2021-02-09] MEDS: InsuLIN REG 1unit/0.01ml Soln (100units/ml) SC SCH ×3 (06:17→16:58)
[2021-02-09 07:21] LABS: Basophils # (auto) 0 10 ^3/uL (0-0.2); Basophils % (auto) 0.2 % (0.0-2.0); Eosinophils # (auto) 0 10 ^3/uL (0-0.8); Eosinophils % (auto) 0.3 % (0.0-7.0); Hemoglobin 12.9 g/dL (12.2-16.2); Lymphocytes # (auto) 1.1 10 ^3/uL (0.4-5.4); Lymphocytes % (auto) 13.7 % (10.0-50.0); Mean Corpuscular Hemoglobin 32.7 pg (28.0-32.0); Mean Corpuscular Hgb Conc. 34.8 g/dL (32.0-36.0); Monocytes # (auto) 0.8 10 ^3/uL (0-1.3); Neutrophils # (auto) 6.2 10 ^3/uL (1.6-8.6); Neutrophils % (auto) 75.8 % (37.0-80.0); Nucleated Red Blood Cells % 0.1 %; Red Blood Cells 3.94 10^6/uL (4.0-5.20); Red Cell Distribution Width 13.7 % (11.8-14.3); White Blood Cell 8.1 10^3/uL (4.4-10.8)
[2021-02-09 07:27] LABS: Calcium 9.5 mg/dL (8.5-10.1); Potassium 4.5 mmol/L (3.5-5.1)
[2021-02-09 07:29] LABS: BUN/Creatinine Ratio 45.8
[2021-02-09 08:38] VITALS: BP 123/48
[2021-02-09] MEDS: ZINC SULFATE 220mg CAP or TAB PO SCH (11:05)
[2021-02-09] MEDS: DexAMETHasone SOD PHOS 10MG/1ML VIAL INJ IV SCH (11:05)
[2021-02-09] MEDS: PANTOPRAZOLE 40 MG TAB PO SCH (11:06)
[2021-02-09] MEDS: ASCORBIC ACID 1,000 MG TAB PO SCH (11:06)
[2021-02-09] MEDS: CHOLECALCIFEROL (VITD3) 2,000 UNIT CAP/TAB PO SCH (11:06)
[2021-02-09] MEDS: ENOXAPARIN SOD 40 MG/0.4 ML SYRINGE SC SCH (11:07)
[2021-02-09] MEDS: INSULIN LANTUS (GLARGINE) 1 /0.01ml (100units/ml) SC SCH (11:25)
[2021-02-09 11:54] VITALS: BP 94/62
[2021-02-09] MEDS ORDERED: ALBUAER3 IN (15:48)
[2021-02-09 16:54] VITALS: BP 102/44
== END 2021-02-09 19:59 | disposition hospice, home (50) | DRG 177 ==
LOC: EDBD 07:45 → ER 07:45 → TELE 17:56 → TELE-EAST 20:33 → TELE-E-ADS 01-31 20:10 → TELE-EAST 02-08 00:45
PROVIDERS: ADMIT Family Medicine; ATTEND Internal Medicine
PROC: XW033E5 Introduction of Remdesivir Anti-infective into Peripheral Vein, Percutaneous Approach, New Technology Group 5 (ICD-10-PCS; principal; 2021-01-25)
PROC: 5A0945A Assistance with Respiratory Ventilation, 24-96 Consecutive Hours, High Flow/Velocity Cannula (ICD-10-PCS; 2021-02-04)
DX: U07.1 COVID-19 (principal); J12.82 Pneumonia due to coronavirus disease 2019; J96.01 Acute respiratory failure with hypoxia; Z68.41 Body mass index [BMI] 40.0-44.9, adult; E11.65 Type 2 diabetes mellitus with hyperglycemia; E86.0 Dehydration; E87.6 Hypokalemia; D72.819 Decreased white blood cell count, unspecified; D69.59 Other secondary thrombocytopenia; E66.01 Morbid (severe) obesity due to excess calories; E11.649 Type 2 diabetes mellitus with hypoglycemia without coma; K82.8 Other specified diseases of gallbladder; R79.89 Other specified abnormal findings of blood chemistry; Z98.51 Tubal ligation status
CPT/HCPCS: 36415; 36600; 71045; 74176; 76705; 80048; 80053; 81001; 82306; 82728; 82805; 82962; 83036; 83615; 83735; 84443; 84484; 85007; 85025; 85027; 85379; 86141; 87040; 87426; 93005; 93970; 94640; 94660; 96365; 96367; 96375; 97110; 97116; 97163; 97530; 99291; G0378; J0696; J1100; J1815